=== PATIENT | male | born 1975 ===

== ENCOUNTER 2025-05-01 06:10 | Day surgery (SDC) | payer OTHER ==
[2025-04-25 12:41] VITALS: BP 140/90
[~2025-05-01] VITALS: Ht 175.3 cm; Wt 102.1 kg
[~2025-05-01 06:10] MED LIST: ALLOPURINOL100 MG PO; ATORVASTATIN CA10 MG PO; COZAAR25 MG PO; TOPROL XL25 M1 PO
[2025-05-01] MEDS ORDERED: CEFTRIAXONE SODIUM 2,000 MG VIAL ONE (07:56)
[2025-05-01] MEDS ORDERED: METRONIDAZOLE/SODIUM CHLORIDE 500 MG/100 ML PIGGYBACK IV ONE (07:57)
[2025-05-01] MEDS ORDERED: POVIDONE-IODINE 118 ML BOTT TOP ONE (10:30)
[2025-05-01] MEDS ORDERED: HEMOSTATIC MATRIX 1 KIT KIT TOP ONE (10:30)
[2025-05-01] MEDS ORDERED: BUPIVACAINE HCL/MPF 0.5% 30ML VIAL ONE (10:30)
[2025-05-01] MEDS ORDERED: DIBUCAINE 30 GM TUBE ONE (10:30)
[2025-05-01] MEDS ORDERED: LIDOCAINE HCL 1%/EPINEPHRINE 20ML VIAL IJ ONE (10:30)
[2025-05-01] MEDS ORDERED: METRONIDAZOLE500 MG PO (10:56)
[2025-05-01] MEDS ORDERED: PERCOCET 5-3251 EACH PO (10:56)
[2025-05-01] MEDS ORDERED: RECTICARE30 GM TOP (10:56)
== END 2025-05-01 17:00 | disposition home or self-care (01) ==
LOC: CIR.AMB 06:10
PROVIDERS: ATTEND Surgery
DX: D12.9 Benign neoplasm of anus and anal canal (principal); K60.321 Anal fistula, complex, initial